=== PATIENT | female | born 1975 | race Asian ===

== ENCOUNTER 2016-05-19 00:55 | Inpatient (IN) | payer OTHER ==
[2016-05-19] VITALS (11 sets, daily range): BP systolic 80–126; BP diastolic 36–66
[~2016-05-19] VITALS: Ht 165.1 cm; Wt 80.6 kg
[2016-05-19 01:13] LABS: BASOPHILS # (AUTO) 0.01 K/uL (0.00-0.20); BASOPHILS % (AUTO) 0.1 % (0.0-2.0); EOSINOPHILS # (AUTO) 0.04 K/uL (0.00-0.70); EOSINOPHILS % (AUTO) 0.27 % (1.0-6.0); HEMATOCRIT 40.7 % (36-46); HEMOGLOBIN 13.6 g/dL (12.0-16.0); LYMPHOCYTES # (AUTO) 1.4 K/uL (1.0-4.8); LYMPHOCYTES % (AUTO) 9.1 % (22.0-44.0); MEAN CORPUSCULAR HEMOGLOBIN 31.6 pg (26.0-34.0); MEAN CORPUSCULAR HGB CONC 33.4 G/dL (31.0-37.0); MEAN CORPUSCULAR VOLUME 95 fL (80-100); MONOCYTES # (AUTO) 0.5 K/uL (0.1-1.0); MONOCYTES % (AUTO) 3.3 % (2.0-9.0); NEUTROPHILS # (AUTO) 13.8 K/uL (1.8-7.7); PLATELET COUNT (AUTO) 327 K/uL (150-450); RED CELL DISTRIBUTION WIDTH 13.5 % (11.5-14.5); WHITE BLOOD COUNT (AUTO) 15.8 K/uL (4.5-11.0)
[2016-05-19] MEDS ORDERED: SODIUM CHLORIDE 0.9% 100 ML ONE (01:13)
[2016-05-19] MEDS ORDERED: IOVERSOL 350 MG/ML 100 ML VIAL ONE (01:13)
[2016-05-19 01:15] LABS: NEUTROPHILS % (AUTO) 87.3 % (40.0-70.0)
[2016-05-19 01:19] LABS: ANION GAP 9 mmol/L (8-16); CALCIUM, TOTAL 8.7 mg/dL (8.8-10.5); CARBON DIOXIDE 29 mmol/L (22-29); CHLORIDE 104 mmol/L (98-107); CREATININE 0.81 mg/dL (0.60-1.30); GLOMERULAR FILTR. RATE CALC > 60 mL/min (>60); POTASSIUM 3.9 mmol/L (3.5-5.1); SODIUM SERUM 142 mmol/L (136-145); UREA NITROGEN, BLOOD 10 mg/dL (7-18)
[2016-05-19 01:25] LABS: ALANINE AMINOTRANSFERASE 22 U/L (12-78); ALBUMIN 3.4 g/dL (3.4-5.0); ASPARTATE AMINOTRANSFERASE 11 U/L (15-37); BILIRUBIN,TOTAL 0.3 mg/dL (0.1-1.0); CREATINE KINASE, TOTAL 44 U/L (26-192); TOTAL PROTEIN, SERUM 7.7 g/dL (6.4-8.2)
[2016-05-19 01:37] LABS: GLUCOSE COMMENT 1 Doctor Notified; GLUCOSE,POINT OF CARE 121 MG/DL (70-110)
[2016-05-19 01:48] LABS: PROTHROMBIN TIME 10.2 SEC (9.4-11.6)
[2016-05-19 02:20] LABS: APPEARANCE,URINE SL CLOUDY (CLEAR); GLUCOSE, URINE (UA) NEGATIVE (NEGATIVE); KETONES,URINE NEGATIVE (NEGATIVE); LEUKOCYTE ESTERASE ,URINE NEGATIVE (NEGATIVE); OCCULT BLOOD,URINE NEGATIVE (NEGATIVE); PH,URINE 6.5 (5.0-8.0); PROTEIN,URINE NEGATIVE (NEGATIVE)
[2016-05-19 02:21] LABS: ADD UA MICROSCOPIC NO
[2016-05-19] MEDS ORDERED: ONDANSETRON HCL 4 MG/2 ML VIAL IVP PRN ×2 (03:00→19:45)
[2016-05-19] MEDS ORDERED: 0.9% SODIUM CHLORIDE 10 ML SYRINGE IVP PRN (03:00)
[2016-05-19] MEDS ORDERED: ACETAMINOPHEN 325 MG TABLET PO PRN (03:00)
[2016-05-19] MEDS ORDERED: MAGNESIUM HYDROXIDE SUSPENSION 30 ML UDCUP PO PRN (05:00)
[2016-05-19] MEDS ORDERED: OxyCODONE HCL/ACETAMINOPHEN 5-325 MG TABLET PO PRN (05:00)
[2016-05-19] MEDS: SIMVASTATIN 40 MG TABLET PO SCH ×2 (05:41→11:18)
[2016-05-19] MEDS: ASPIRIN 325 MG TABLET PO SCH ×2 (05:41→11:17)
[2016-05-19] MEDS: ACETAMINOPHEN 325 MG TABLET PO PRN ×2 (05:48→11:18)
[2016-05-19] MEDS ORDERED: INFLUENZA VIRUS VACCINE QVS 2016-17 (3YR+)/PF 60 MCG/0.5 ML SYRINGE IM ONE (07:15)
[2016-05-19] MEDS ORDERED: PANTOPRAZOLE SODIUM 40 MG DR TABLET PO SCH (09:00)
[2016-05-19] MEDS ORDERED: GADOBUTROL 1 MMOL/ML 10 ML VIAL IVP ONE (09:46)
[2016-05-19] MEDS: HEPARIN SODIUM,PORCINE 5,000 UNITS/ML VIAL SQ SCH ×2 (11:17→18:03)
[2016-05-19] MEDS: DOCUSATE SODIUM 100 MG CAPSULE PO SCH ×2 (11:18→21:00)
[2016-05-19] MEDS ORDERED: SODIUM CHLORIDE 0.9% 500 ML IV ONE ×2 (14:25→14:30)
[2016-05-19] MEDS ORDERED: PHENYLEPHRINE 200 MG/D5%-WATER 250 ML IV PRN (16:57)
[2016-05-19] MEDS ORDERED: CLOPIDOGREL BISULFATE 75 MG TABLET PO SCH (18:00)
[2016-05-19 18:44] LABS: CHOL/HDL RATIO 5.3 (3.9-5.7)
[2016-05-19 18:48] LABS: HEMOGLOBIN A1C 5.7 % (4.5-6.2)
[2016-05-19 18:53] LABS: THYROID STIMULATING HORMONE 0.68 uIU/mL (0.36-3.74)
[2016-05-19] MEDS ORDERED: RAPID SEQUENCE KIT [RSI] 1 EACH KIT ONE ×2 (23:13)
[2016-05-19] MEDS ORDERED: LABETALOL HCL 5 MG/ML 20 ML VIAL IVP ONE (23:15)
[2016-05-20] VITALS: BP 164/120
[2016-05-20 00:10] LABS: ABG A-A DIFF O2 237.3 mmHg (10-20.0); ABG BASE EXCESS -0.5 mmol/L (-2.0-3.0); ABG HCO3 24.4 mmol/L (22.0-26.0); ABG OXYHEMOGLOBIN 97.6 % (94.0-100.0); ABG PCO2 37 mmHg (35-45); ABG PH 7.425 (7.35-7.450); ALLEN TEST, BLOOD GAS POS; TEMPERATURE, FAHRENHEIT, BG 98.8 FAHREN (96.0-98.6)
[2016-05-20] MEDS ORDERED: SUCCINYLCHOLINE CHLORIDE 20 MG/ML 10 ML VIAL IV ONE (01:14)
[2016-05-20] MEDS ORDERED: ETOMIDATE 2 MG/ML 10 ML VIAL IV ONE (01:14)
[2016-05-20 07:32] LABS: GLUCOSE,POINT OF CARE 104 MG/DL (70-110)
== END 2016-05-20 01:15 | disposition short-term general hospital (02) | DRG 45 ==
LOC: EMS 00:56 → 5N 03:30 → ICU 16:00
PROVIDERS: ADMIT Internal Medicine; ATTEND Internal Medicine
PROC: 0BH17EZ Insertion of Endotracheal Airway into Trachea, Via Natural or Artificial Opening (ICD-10-PCS; principal; 2016-05-19)
PROC: 5A1935Z Respiratory Ventilation, Less than 24 Consecutive Hours (ICD-10-PCS; 2016-05-19)
PROC: 3E0234Z Introduction of Serum, Toxoid and Vaccine into Muscle, Percutaneous Approach (ICD-10-PCS; 2016-05-19)
DX: I63.9 Cerebral infarction, unspecified (principal); I66.02 Occlusion and stenosis of left middle cerebral artery; I95.9 Hypotension, unspecified; G81.91 Hemiplegia, unspecified affecting right dominant side; I10 Essential (primary) hypertension; I99.8 Other disorder of circulatory system; R29.810 Facial weakness; F17.210 Nicotine dependence, cigarettes, uncomplicated; R00.1 Bradycardia, unspecified; Z71.6 Tobacco abuse counseling; Z23 Encounter for immunization
CPT/HCPCS: 70450; 70496; 70544; 70553; 82607; 82746; 82805; 82962; 83036; 84436; 84443; 84481; 86850; 86900; 86901; 87081; 90471; 92523; 93005; 93306; 93880; 94002; 96374; 97163; 97167; 99291; A9585; J0330; J1644; J2370; J2405; J3490; J7040; J7050